=== PATIENT | female | born 1930 | race Caucasian/White ===

== ENCOUNTER → 2016-04-14 | Outpatient (CLI) | payer OTHER, MEDICARE ==
--- NOTE | 2016-04-14 19:26 | DI ---
LEFT FOOT, 04/14/2016 2:02 PM: Clinical History: Closed fracture of the fifth metatarsal bone of the left foot with routine healing. Previous Exam: 03/18/2016. 3 views are submitted. There is an oblique fracture of the distal half of the fifth metatarsal bone t hat is nondisplaced. Since the last exam, periosteal new bone formation has developed. The remainder of the foot examination is normal. Calcifications are present in the plantar fascia. Reading: Progressive healing of the nondisplaced fracture of the distal half of the fifth metatarsal bone.
== END ==
LOC: ORTHO 14:17
PROVIDERS: ATTEND Orthopaedic Surgery
DX: S92.355D Nondisplaced fracture of fifth metatarsal bone, left foot, subsequent encounter for fracture with routine healing (principal)
CPT/HCPCS: 73630

== ENCOUNTER → 2016-05-09 | Outpatient (CLI) | payer OTHER, MEDICARE ==
[2016-05-09 11:44] LABS: BILIRUBIN,TOTAL 0.5 mg/dL (0.3-1.2); BUN/CREATININE RATIO 18.57 (6-20); CALCIUM 9.2 mg/dL (8.7-10.7); CREATININE 0.7 mg/dL (0.50-1.20); POTASSIUM 4.6 meq/L (3.8-5.2); TOTAL PROTEIN 7.1 g/dL (6.1-8.0)
== END ==
LOC: MOB LAB 09:38
PROVIDERS: ATTEND Nurse Practitioner Family
DX: E03.9 Hypothyroidism, unspecified (principal); R10.12 Left upper quadrant pain; K21.9 Gastro-esophageal reflux disease without esophagitis; M19.072 Primary osteoarthritis, left ankle and foot; M19.071 Primary osteoarthritis, right ankle and foot
CPT/HCPCS: 36415; 80053; 82150; 83690; 84443; 99214; G0463

== ENCOUNTER → 2016-07-07 | Outpatient (CLI) | payer OTHER, MEDICARE ==
--- NOTE | 2016-07-07 09:24 | EKG ---
[address] [address] Measurements Intervals [place] Rate: 54 P: 62 NM: 177 QRS: 7 QRSD: 84 T: 64 QT: 452 QTc: 437 Interpretive Statements SINUS BRADYCARDIA WITH OCCASIONAL VENTRICULAR PREMATURE COMPLEXES NONSPECIFIC T-WAVE ABNORMALITY No previous ECG available for comparison Electronically Signed On 07-11-16 10:27:10 MDT by Eddie Black MD [email or web address]
[2016-07-07 10:43] LABS: HEMATOCRIT 38.3 % (37.0-47.0); HEMOGLOBIN 12.2 g/dL (12.0-16.0); MEAN CORPUSCULAR HEMOGLOBIN 27.2 PG (27-31); MEAN CORPUSCULAR HGB CONC 31.9 g/dL (33-37); MEAN CORPUSCULAR VOLUME 85.5 FL (81-99); MEAN PLATELET VOLUME 8.8 FL (7.4-12.2); RED BLOOD COUNT 4.48 10^6/uL (4.20-5.40)
[2016-07-07 11:02] LABS: BUN/CREATININE RATIO 17.14 (6-20); CALCIUM 8.9 mg/dL (8.7-10.7); MAGNESIUM 1.8 mg/dL (1.6-2.4); SERUM ALBUMIN 3.6 g/dL (3.5-4.8)
[2016-07-07 11:59] LABS: FREE T4 (FREE THYROXINE) 1.19 ng/dL (0.93-1.71)
== END ==
LOC: MOB EKG 09:03
PROVIDERS: ATTEND Nurse Practitioner Family
DX: E03.9 Hypothyroidism, unspecified (principal); R42 Dizziness and giddiness; M79.602 Pain in left arm; R53.1 Weakness; R00.1 Bradycardia, unspecified
CPT/HCPCS: 36415; 80053; 83735; 84439; 84443; 85027; 93005; 93010; 93270

== ENCOUNTER → 2016-07-12 | Outpatient (CLI) | payer OTHER, MEDICARE ==
--- NOTE | 2016-07-12 15:41 | STRESSTEST ---
[facility] [place] Stat[place] This very nice and vigorous appearing 86 y.o. female is referred by Sherin Anand for episodes of "lightheadedness" (once with vertigo but none for 10 days now). She has an event monitor in place. Risk factors include only some Family Hx without any use of tobacco, no history of diabetes, no hypertension, and no lipid problems known. She does have chronic pain. She rapidly attained 100% PMHR in stage 1 at 4.2 METs and DP 18.8K without any significant ST depression. There was some increased frequency of VPCs with exercise but no couplets or V-tach. There was no hypoxia. IMPRESSION: Low risk stress test with some ventricular ectopy. PLAN: Continue with event monitor and report any recurrance. [id number]
== END ==
LOC: EKG 08:57
PROVIDERS: ATTEND Nurse Practitioner Family
DX: M79.602 Pain in left arm (principal); R42 Dizziness and giddiness; R53.1 Weakness
CPT/HCPCS: 93016; 93017; 93018

== ENCOUNTER → 2016-09-28 | Outpatient (CLI) | payer OTHER, MEDICARE ==
--- NOTE | 2016-09-28 14:33 | DI ---
AP PELVIS and RIGHT HIP, 09/28/2016 12:17 PM: Clinical History: Right hip pain. Previous Exam: None at this facility. There is no soft tissue abnormality. The bony structures of the pelvis are normal. There is osteoporo sis. 2 views of the right hip show bony acetabular over coverage with probable calcification of the s uperior labrum. There is asphericity of the femoral head with what may represent a dysplastic "bump" producing femoroacetabular impingement. There is narrowing of the superior aspect of the joint space. Readin. 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 2. The AP pelvis view is unremarkable. 3. Osteoporosis.
--- NOTE | 2016-09-28 14:36 | DI ---
LEFT HIP, 09/28/2016 12:18 PM: Clinical History: Left hip pain. Previous Exam: None at this facility. 2 views are submitted. There is no acute soft tissue, osseous, or joint abnormality. There is mild na rrowing of the joint space. There is a calcific density in the soft tissues along the lateral margin of the femoral head. There is no definite acetabular over coverage but there is a dysplastic "bump". Readin. Mild degenerative arthritic change. 2. 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
--- NOTE | 2016-09-28 15:27 | DI ---
LUMBAR SPINE SERIES, 09/28/2016 12:00 PM: Clinical History: Pain in lower limbs. Previous Exam: None at this facility. 3 routine upright views and upright lateral flexion and extension views are submitted. The vertebral bodies are of normal height and size. There is severe L2-3 through L5-S1 disc space narrowing. The L1 -2 disc space is normal. There is sclerosis at the endplates at the L2-3 level. There is a minimal gr dale 1 spondylolisthesis at L4-5 but there is no instability noted with flexion and extension maneuver s. The pedicles are normal. Degenerative arthritic changes are present in the apophyseal joints bilat erally from L3-4 through L5-S1 and on the right side at L2-3. Both SI joints are normal. There is ost eoporosis. Readin. Severe chronic disc space narrowing from L2-3 through L5-S1 with degenerative arthritic changes i n the apophyseal joints bilaterally between L3-4 through L5-S1. There is also degenerative arthritis in the left L2-3 apophyseal joint. 2. There is a minimal grade 1 spondylolisthesis at L4-5 without evidence of instability with flexion and extension. 3. Osteoporosis.
== END ==
LOC: ORTHO 12:12
PROVIDERS: ATTEND Physician Assistant
DX: M79.662 Pain in left lower leg (principal); M79.661 Pain in right lower leg; M25.551 Pain in right hip; M25.552 Pain in left hip; M16.0 Bilateral primary osteoarthritis of hip; M47.26 Other spondylosis with radiculopathy, lumbar region; M48.06 Spinal stenosis, lumbar region
CPT/HCPCS: 72110; 73502

== ENCOUNTER 2016-09-30 13:09 | Day surgery (SDC) | payer OTHER, MEDICARE ==
[~2016-09-30 13:09] MED LIST: BETAMET ACET/BETAMET NA PH 6 MG/1 ML - 5 ML ONE; Iopamidol Inj 61% 50 ML VIAL ONE; LIDOCAINE MPF 2% - 5 ML (20 MG/1 ML) ONE; LIDOCAINE W/ SODIUM BICARB 0.5 ML SYR ONE; ROPIVACAINE HCL 7.5 MG/1 ML - 20 ML ONE
[2016-09-30 14:56] VITALS: RESP 16
[2016-09-30 14:57] VITALS: TEMP 98.5
== END 2016-09-30 14:25 | disposition home or self-care (01) ==
LOC: SDSC 13:09
PROVIDERS: ATTEND Orthopaedic Surgery
DX: M16.11 Unilateral primary osteoarthritis, right hip (principal)
CPT/HCPCS: 20610; 76000; J0702; J2795; J2001

== ENCOUNTER → 2016-10-06 | Outpatient (CLI) | payer OTHER, MEDICARE | LOC: MMPC 10:00 | PROVIDERS: ATTEND Orthopaedic Surgery | DX: M16.11 Unilateral primary osteoarthritis, right hip (principal) | CPT/HCPCS: 99212; G0463 ==

== ENCOUNTER 2018-12-19 14:16 | Inpatient (IN) ==
[~2018-12-19 14:16] MED LIST changes: -BETAMET ACET/BETAMET NA PH 6 MG/1 ML - 5 ML ONE; +CEFTRIAXONE SODIUM 2 GM VIAL IV ONE; -Iopamidol Inj 61% 50 ML VIAL ONE; -LIDOCAINE MPF 2% - 5 ML (20 MG/1 ML) ONE; +LIDOCAINE W/ SODIUM BICARB 0.5 ML SYR SUBD PRN; +Lactated Ringers 1,000 ML PRIMARY IV ONE; +Lactated Ringers 1,000 ML PRIMARY IV SCH; +Nasal Sanitizer POPSWAB ampule 3 AMP (Nozin) PREOP DOSE ENOS SCH; -ROPIVACAINE HCL 7.5 MG/1 ML - 20 ML ONE; +Sodium Chloride 0.9% 100 ML IV ONE; +cefTRIAXone Inj 2 GM in Sodium Chloride 0.9% 100 ML IV ONE
[2018-12-19] MEDS ORDERED: LIDOCAINE 2% 20 MG/ML - 20 ML VIAL ONE (15:17)
[2018-12-19] MEDS ORDERED: Iothalamate Meglumine 30 ML VIAL IV ONE ×2 (15:17→17:04)
[2018-12-19] MEDS ORDERED: LIDOCAINE HCL 2 % 10 ML JELLY URO-JECT TOPICAL ONE (15:17)
[2018-12-19] MEDS ORDERED: Gentamicin Inj 40 MG/ML VIAL ONE (15:17)
[2018-12-19] MEDS ORDERED: PROPOFOL 10 MG/1 ML (200 MG/20 ML) VIAL IV ONE (15:56)
[2018-12-19] MEDS ORDERED: fentaNYL Inj 100 MCG/2 ML VIAL ONE ×2 (16:05→18:12)
[2018-12-19] MEDS ORDERED: FUROSEMIDE 10 MG/1 ML - 4 ML ONE (16:07)
[2018-12-19] MEDS ORDERED: ONDANSETRON 4 MG/2 ML VIAL ONE (17:05)
[2018-12-19] MEDS ORDERED: HYDROmorphone 2 MG/1 ML IVP PRN (17:25)
[2018-12-19] MEDS ORDERED: KETOROLAC 15 MG/1 ML VIAL IVP PRN (17:25)
[2018-12-19] MEDS ORDERED: Prochlorperazine Edisylate Inj 10mg/2ml vial IVP PRN (17:25)
[2018-12-19] MEDS ORDERED: fentaNYL Inj 100 MCG/2 ML VIAL IVP PRN (17:25)
[2018-12-19] MEDS ORDERED: HYDROmorphone 2 MG/1 ML ONE (17:25)
[2018-12-19] MEDS ORDERED: ONDANSETRON 4 MG/2 ML VIAL IVP PRN ×3 (17:25→19:39)
[2018-12-19] MEDS ORDERED: LIDOCAINE W/ SODIUM BICARB 0.5 ML SYR SUBD PRN ×3 (17:25→19:39)
[2018-12-19] MEDS ORDERED: DIAZEPAM 10 MG/2 ML (5 MG/1 ML) CARPUJECT ONE (17:34)
[2018-12-19] MEDS ORDERED: DIAZEPAM 10 MG/2 ML (5 MG/1 ML) CARPUJECT IVP PRN ×2 (17:55→17:58)
[2018-12-19] MEDS ORDERED: LIDOCAINE HCL 2 % 10 ML JELLY URO-JECT TOPICAL PRN ×5 (17:58→19:39)
[2018-12-19] MEDS ORDERED: ACETAMINOPHEN 325 MG TABLET PO PRN ×2 (18:35→19:39)
[2018-12-19] MEDS ORDERED: HYDROcodone-APAP 10 MG-325 MG TABLET PO PRN ×2 (18:35→19:39)
[2018-12-19] MEDS ORDERED: Lactated Ringers 1,000 ML PRIMARY IV SCH ×2 (18:35→19:39)
[2018-12-19] MEDS ORDERED: CRANBERRY 500 MG PO SCH (18:35)
[2018-12-19] MEDS ORDERED: Acetaminophen 1000mg Inj 1,000 MG/100 ML VIAL IV ONE (20:10)
[2018-12-19] MEDS: Prochlorperazine Edisylate Inj 10mg/2ml vial IVP PRN (20:18)
[2018-12-19 20:26] LABS: BASOPHILS # (AUTO) 0.01 10*3/UL; BASOPHILS % (AUTO) 0.6 % (0-1); EOSINOPHILS # (AUTO) 0 10*3/UL; EOSINOPHILS % (AUTO) 0 % (0-8); Hematocrit [HCT] 42.4 % (37.0-47.0); Hemoglobin [HGB] 13.3 g/dL (12.0-16.0); LYMPHOCYTES # (AUTO) 0.29 10*3/uL; MEAN CORPUSCULAR HGB CONC 31.4 g/dL (33-37); MEAN CORPUSCULAR VOLUME 88.3 FL (81-99); MEAN PLATELET VOLUME 8.3 FL (7.4-12.2); MONOCYTES # (AUTO) 0 10*3/UL (0.3-0.8); MONOCYTES % (AUTO) 0 % (5-15); NEUTROPHILS # (AUTO) 1.24 10*3/UL; NEUTROPHILS % (AUTO) 80.1 % (50-80); PLATELET MORPHOLOGY COMMENT NORMAL MORPHOLOGY (NORM); RBC MORPHOLOGY COMMENT NORMAL MORPHOLOGY (NORM); WBC MORPHOLOGY COMMENT NORMAL MORPHOLOGY (NORM)
[2018-12-19 20:33] LABS: VENOUS PH 7.5 (7.32-7.42)
[2018-12-19 20:42] LABS: BUN/CREATININE RATIO 12.5 (6-20); SERUM ALBUMIN 3.7 g/dL (3.5-4.8)
[2018-12-19] MEDS ORDERED: Cefepime Inj 2 GM in Sodium Chloride 0.9% 100 ML IV SCH (21:15)
[2018-12-19] MEDS ORDERED: Norepinephrine Drip 8 MG in D5W 250 ML IV SCH (22:00)
[2018-12-19] MEDS ORDERED: oxyCODONE IR Tab 5 MG TAB PO PRN (22:08)
[2018-12-20] MEDS ORDERED: oxyCODONE IR Tab 5 MG TAB PO PRN (00:35)
[2018-12-20] MEDS ORDERED: Acetaminophen 1000mg Inj 1,000 MG/100 ML VIAL IV PRN (01:34)
[2018-12-20 03:41] LABS: Hematocrit [HCT] 37.2 % (37.0-47.0); Hemoglobin [HGB] 11.5 g/dL (12.0-16.0); MEAN CORPUSCULAR HGB CONC 30.9 g/dL (33-37); MEAN CORPUSCULAR VOLUME 89.4 FL (81-99); MEAN PLATELET VOLUME 7.9 FL (7.4-12.2); RED BLOOD COUNT 4.16 10^6/uL (4.20-5.40)
[2018-12-20 03:53] LABS: BUN/CREATININE RATIO 10.76 (6-20); SERUM ALBUMIN 2.8 g/dL (3.5-4.8)
[2018-12-20 04:12] VITALS: RESP 16
[2018-12-20 04:19] LABS: BAND NEUTROPHILS % 12 % (0-10); NEUTROPHILS % (MANUAL) 70 % (50-80)
[2018-12-20 04:20] LABS: BASOPHILS % (MANUAL) 1 % (0-1); EOSINOPHILS % (MANUAL) 0 % (0-8); METAMYELOCYTES % 6 %; MONOCYTES % (MANUAL) 5 % (0-12); PLATELET MORPHOLOGY COMMENT NORMAL MORPHOLOGY (NORM); RBC MORPHOLOGY COMMENT NORMAL MORPHOLOGY (NORM); WBC MORPHOLOGY COMMENT SEE COMMENTS (NORM)
[2018-12-20] MEDS ORDERED: SODIUM CHLORIDE 0.9% IV SCH (05:30)
[2018-12-20] MEDS ORDERED: VASOPRESSIN IV SCH (05:30)
[2018-12-20] MEDS ORDERED: LEVOTHYROXINE 50 MCG TABLET PO SCH ×2 (05:30)
[2018-12-20] MEDS ORDERED: cefTRIAXone Inj 2 GM in Sodium Chloride 0.9% 100 ML IV SCH ×4 (06:00)
[2018-12-20 06:13] VITALS: BP 84/46; TEMP 98.4; O2SAT 95
[2018-12-20] MEDS ORDERED: PANTOPRAZOLE IV 40 MG VIAL IVP ONE (06:25)
[2018-12-20] MEDS: Prochlorperazine Edisylate Inj 10mg/2ml vial IVP PRN (06:27)
[2018-12-20] MEDS ORDERED: OMEPRAZOLE 20 MG CAPSULE PO SCH ×2 (07:00→09:00)
[2018-12-20] MEDS ORDERED: ACIDOPHILUS/BULGARICUS CHEWABLE TABLET PO SCH ×2 (09:00)
[2018-12-20] MEDS ORDERED: CHOLECALCIFEROL 1000 IU TABLET PO SCH ×2 (09:00)
[2018-12-20] MEDS ORDERED: Multivitamin Tab 1 TAB PO SCH ×2 (09:00)
[2018-12-20] MEDS ORDERED: ASPIRIN 325 MG TABLET PO SCH ×2 (09:00)
[2018-12-20] MEDS ORDERED: Cefepime Inj 2 GM in Sodium Chloride 0.9% 100 ML IV SCH (10:00)
== END 2018-12-20 06:53 | disposition short-term general hospital (02) | DRG 871 ==
LOC: OPS 14:16 → MED/SURG 14:16 → OR 14:16 → OPS 14:32 → MED/SURG 18:10 → ICU 19:12
PROVIDERS: ADMIT Urology; ATTEND Urology